=== PATIENT | female | born 1990 | race Caucasian/White ===

== ENCOUNTER → 2018-11-03 | Outpatient (CLI) | payer OTHER ==
[~2018-11-03] MED LIST: CLIN300 PO; ONDA4ODT MM; OXYACE5T PO; PROM25 PO; RXONDA4ODT MM; RXOXYACE PO; RXPROM25 PO; TRAM50 PO
[2018-11-06 20:06] LABS: HSV-1 DNA Positive (Negative); HSV-2 DNA Negative (Negative)
== END | disposition home or self-care (01) ==
LOC: LAB SHORT 14:31 → LAB 14:31
PROVIDERS: Nurse Practitioner Women's Health
DX: A60.00 Herpesviral infection of urogenital system, unspecified (principal)
CPT/HCPCS: 87529

== ENCOUNTER 2021-03-27 09:21 | Day surgery (SDC) | payer OTHER ==
[~2021-03-27] VITALS: Ht 167.6 cm; Wt 66.7 kg
[~2021-03-27 09:21] MED LIST changes: +ASCO500 PO; +FISH OIL 1,2001 EAC7 PO; +KETOROLAC; +MAGNESIUM OXID500 MG PO; +Ondansetron Odt8 MG MM; +PRENATAL TABLE1 EAC2 PO; +ZANAFLEX4 M5 PO
== END 2021-03-27 11:50 | disposition home or self-care (01) ==
LOC: ORSCSDS 09:21
PROVIDERS: Surgery
PROC: 0DB68ZX Excision of Stomach, Via Natural or Artificial Opening Endoscopic, Diagnostic (ICD-10-PCS; principal; 2021-03-27 10:30)
PROC: 0DBP8ZX Excision of Rectum, Via Natural or Artificial Opening Endoscopic, Diagnostic (ICD-10-PCS; principal; 2021-03-27 10:30)
PROC: 0DBN8ZX Excision of Sigmoid Colon, Via Natural or Artificial Opening Endoscopic, Diagnostic (ICD-10-PCS; principal; 2021-03-27 10:30)
PROC: 0DB98ZX Excision of Duodenum, Via Natural or Artificial Opening Endoscopic, Diagnostic (ICD-10-PCS; principal; 2021-03-27 10:30)
PROC: 0DBL8ZX Excision of Transverse Colon, Via Natural or Artificial Opening Endoscopic, Diagnostic (ICD-10-PCS; principal; 2021-03-27 10:30)
PROC: 0DBK8ZX Excision of Ascending Colon, Via Natural or Artificial Opening Endoscopic, Diagnostic (ICD-10-PCS; principal; 2021-03-27 10:30)
DX: R11.0 Nausea (principal); R10.13 Epigastric pain; K59.1 Functional diarrhea; D64.9 Anemia, unspecified; A60.00 Herpesviral infection of urogenital system, unspecified; Z87.891 Personal history of nicotine dependence; Z79.899 Other long term (current) drug therapy
CPT/HCPCS: 88305; 88342; J0330; J0461; J2250; J2405; J2704; J7120

== ENCOUNTER → 2022-02-05 | Outpatient (CLI) | payer OTHER ==
[2022-02-08 23:08] LABS: CHLAMYDIA TRACHOMATIS, NAA Negative (Negative)
== END | disposition home or self-care (01) ==
LOC: LAB SHORT 12:01
PROVIDERS: Obstetrics & Gynecology
DX: Z34.01 Encounter for supervision of normal first pregnancy, first trimester (principal)
CPT/HCPCS: 87491; 87591

== ENCOUNTER 2022-04-11 11:30 | Emergency (ER) | payer OTHER ==
[~2022-04-11] VITALS: Ht 167.6 cm; Wt 77.1 kg
[2022-04-11 12:04] LABS: Source, Urine Clean Catch
[2022-04-11 12:08] LABS: Appearance, Urine Hazy (Clear); Bilirubin, Urine Neg (Neg); Blood, Urine 3+ (Neg); Color, Urine Yellow (P-Yellow); Glucose Qualitative, Urine Neg (Neg); Ketones, Urine Neg (Neg); Leukocyte Esterase, Urine Neg (Neg); Nitrite, Urine Neg (Neg); Protein, Urine Neg (Neg); Specific Gravity, Urine 1.015 (1.003-1.022); Urobilinogen, Urine NORM (Normal); pH, Urine 6.5 (5.0-8.0)
[2022-04-11 12:18] LABS: BASOPHILS ABSOLUTE AUTO 0.05 K/mm3 (0.00-0.23); BASOPHILS PERCENT AUTO 0 % (0-2); EOSINOPHILS ABSOLUTE AUTO 0.07 K/mm3 (0.00-0.68); EOSINOPHILS PERCENT AUTO 1 % (0-6); Hematocrit 34.2 % (33.0-51.0); Hemoglobin 11.5 g/dL (11.5-16.0); IMMATURE GRAN ABSOLUTE AUTO 0.19 K/mm3 (0.00-0.10); IMMATURE GRAN PERCENT AUTO 1 % (0-1); LYMPHOCYTES ABSOLUTE AUTO 1.78 K/mm3 (0.84-5.20); LYMPHOCYTES PERCENT AUTO 13 % (21-46); MONOCYTES ABSOLUTE AUTO 0.61 K/mm3 (0.16-1.47); MONOCYTES PERCENT AUTO 4 % (4-13); Mean Corpuscular HGB 30.9 pg (26.0-34.0); Mean Corpuscular HGB Conc 33.6 g/dL (31.5-36.5); Mean Corpuscular Volume 92 fL (80-100); Mean Platelet Volume 9.4 fL (9.1-12.4); NEUTROPHILS ABSOLUTE AUTO 11.05 K/mm3 (1.96-9.15); NEUTROPHILS PERCENT AUTO 80 % (41-73); Platelet Count 243 K/mm3 (150-400); RDW Coefficient Variation 12.3 % (11.7-14.2); Red Blood Cell Count 3.72 M/mm3 (3.80-5.20); White Blood Cell Count 13.75 K/mm3 (4.00-11.30)
[2022-04-11 12:24] LABS: Squamous Epithelial Cells Few /hpf (Few); White Blood Cells, Urine 0-2 /hpf (0-5)
[2022-04-11 12:25] LABS: Amorphous Mod (0-Heavy); Bacteria Few /hpf
[2022-04-11 12:55] LABS: Albumin/Globulin Ratio 0.8 (0.8-1.8); Bilirubin, Total 0.1 mg/dL (0.1-1.0); Bun/Creatinine Ratio 12.7 (12.0-20.0); Calcium, Blood 8.9 mg/dL (8.5-10.1); Creatinine, Blood 0.71 mg/dL (0.40-1.00); Globulin, Blood 3.7 g/dL (2.2-4.0); Potassium, Blood 3.8 mmol/L (3.5-5.5); Total Protein, Blood 6.7 g/dL (6.4-8.2)
[2022-04-11] MEDS ORDERED: ONDA4ODT MM (16:55)
[2022-04-11] MEDS ORDERED: HYDR1TAB94 PO (16:55)
== END 2022-04-11 17:03 | disposition home or self-care (01) ==
LOC: ER 11:30
PROVIDERS: Physician Assistant
DX: O99.891 Other specified diseases and conditions complicating pregnancy (principal); N13.30 Unspecified hydronephrosis; R11.2 Nausea with vomiting, unspecified; Z88.5 Allergy status to narcotic agent; Z79.899 Other long term (current) drug therapy; Z87.891 Personal history of nicotine dependence; Z3A.22 22 weeks gestation of pregnancy
CPT/HCPCS: 36415; 76770; 76815; 80053; 81001; 84702; 85025; A9270; J2270; J2405; J2550; J7030

== ENCOUNTER → 2022-07-27 | Outpatient (CLI) | payer OTHER ==
[~2022-07-27] MED LIST changes: +HYDR1TAB94 PO; +IBU800 MG PO; +UNISOM PM PAIN1 EACH PO
== END | disposition home or self-care (01) ==
LOC: LAB SHORT 17:54 → LAB 17:54
DX: Z34.03 Encounter for supervision of normal first pregnancy, third trimester (principal); Z3A.36 36 weeks gestation of pregnancy
CPT/HCPCS: 87081; 87150

== ENCOUNTER 2022-08-14 20:59 | Inpatient (IN) | payer OTHER ==
[~2022-08-14] VITALS: Ht 167.6 cm; Wt 90.5 kg
[~2022-08-14 20:59] MED LIST changes: -IBU800 MG PO; -UNISOM PM PAIN1 EACH PO
[2022-08-14 21:38] LABS: BASOPHILS ABSOLUTE AUTO 0.03 K/mm3 (0.00-0.23); BASOPHILS PERCENT AUTO 0 % (0-2); EOSINOPHILS ABSOLUTE AUTO 0.07 K/mm3 (0.00-0.68); EOSINOPHILS PERCENT AUTO 1 % (0-6); Hematocrit 33.4 % (33.0-51.0); Hemoglobin 11.6 g/dL (11.5-16.0); IMMATURE GRAN PERCENT AUTO 2 % (0-1); LYMPHOCYTES PERCENT AUTO 18 % (21-46); MONOCYTES ABSOLUTE AUTO 0.77 K/mm3 (0.16-1.47); MONOCYTES PERCENT AUTO 6 % (4-13); Mean Corpuscular HGB 31.6 pg (26.0-34.0); Mean Corpuscular HGB Conc 34.7 g/dL (31.5-36.5); Mean Corpuscular Volume 91 fL (80-100); NEUTROPHILS ABSOLUTE AUTO 9.06 K/mm3 (1.96-9.15); NEUTROPHILS PERCENT AUTO 74 % (41-73); Platelet Count 201 K/mm3 (150-400); RDW Coefficient Variation 13.5 % (11.7-14.2); RDW Standard Deviation 44.9 fL (35.1-46.3); Red Blood Cell Count 3.67 M/mm3 (3.80-5.20); White Blood Cell Count 12.33 K/mm3 (4.00-11.30)
[2022-08-14] MEDS ORDERED: UNISOM PM PAIN1 EACH PO (21:41)
[2022-08-14 23:06] LABS: PCO2 Cord - Arterial 74.4 mmHg (40-50); PO2 Cord - Arterial < 14 mmHg (16-20); pH Cord - Arterial 7.17 (7.28-7.35)
[2022-08-14 23:08] LABS: PCO2 Cord - Venous 55.8 mmHg (40-50); PO2 Cord - Venous 14.4 mmHg (28-32); pH Umbilical Cord - Venous 7.29 (7.26-7.35)
[2022-08-15 06:47] LABS: BASOPHILS ABSOLUTE AUTO 0.02 K/mm3 (0.00-0.23); BASOPHILS PERCENT AUTO 0 % (0-2); EOSINOPHILS ABSOLUTE AUTO 0.04 K/mm3 (0.00-0.68); EOSINOPHILS PERCENT AUTO 0 % (0-6); Hematocrit 30.3 % (33.0-51.0); Hemoglobin 10.3 g/dL (11.5-16.0); IMMATURE GRAN ABSOLUTE AUTO 0.15 K/mm3 (0.00-0.10); IMMATURE GRAN PERCENT AUTO 1 % (0-1); LYMPHOCYTES ABSOLUTE AUTO 2.06 K/mm3 (0.84-5.20); LYMPHOCYTES PERCENT AUTO 15 % (21-46); MONOCYTES ABSOLUTE AUTO 0.77 K/mm3 (0.16-1.47); MONOCYTES PERCENT AUTO 6 % (4-13); Mean Corpuscular HGB 31.3 pg (26.0-34.0); Mean Corpuscular Volume 92 fL (80-100); NEUTROPHILS ABSOLUTE AUTO 10.77 K/mm3 (1.96-9.15); NEUTROPHILS PERCENT AUTO 78 % (41-73); Platelet Count 185 K/mm3 (150-400); RDW Coefficient Variation 13.5 % (11.7-14.2); RDW Standard Deviation 45.9 fL (35.1-46.3); Red Blood Cell Count 3.29 M/mm3 (3.80-5.20); White Blood Cell Count 13.81 K/mm3 (4.00-11.30)
--- NOTE | 2022-08-16 01:00 | NUR ---
VS DEFERED FOR PT TO SLEEP, RN HAS NB AT DESK
[2022-08-16] MEDS ORDERED: HYDR1TAB94 PO (14:31)
[2022-08-16] MEDS ORDERED: IBU800 MG PO (14:31)
--- NOTE | 2022-08-17 10:00 | NUR ---
ELEVATED BP DURING AM ASSESSMENT, PT WAS SITTING ON THE EDGE OF BED. PATIENT STATED SHE JUST GOT OUT OF THE BATHROOM AND DRANK SOME COFFEE. WILL CHECK WHEN PATIENT IN BACK IN BED.
--- NOTE | 2022-08-17 11:05 | NUR ---
PATIENT IS STILL UP IN CHAIR FOR A VISIT. WILL RECHECK BLOOD PRESSURE.
--- NOTE | 2022-08-17 16:56 | NUR ---
PT BP ELEVATED 155/103, PT WAS SEMI FOWLERS. AFTER BP READING PT STATED "I WAS HOLDING MY BREATH". PT IS ALSO PREPARING TO D/C HOME AND HAS BEEN PREPARING SELF, BABY AND BELONGINGS. WILL RECHECK AND NOTIFY MD NEEDED.
--- NOTE | 2022-08-17 17:57 | NUR ---
PRINTED DISCHARGED INSTRUCTIONS AND REVIEWED WITH PATIEN AND SPOUSE. PATIENT VERBALIZED UNDERSTANDING OF INSTRUCTIONS AND FOLLOW UP. PATIENT DENIES ADDITIONAL QUESTIONS. ID BANDS MATCHED WITH . PATIENT IS DISCHARGED HOME AMBULATORY TO CARE OF .
== END 2022-08-17 17:40 | disposition home or self-care (01) | DRG 788 ==
LOC: OBS 20:59 → BC 21:02 → OBS 21:27 → BC 21:28
PROVIDERS: ADMIT Obstetrics & Gynecology
PROC: 10D00Z1 Extraction of Products of Conception, Low, Open Approach (ICD-10-PCS; principal; 2022-08-14 19:15)
DX: O42.02 Full-term premature rupture of membranes, onset of labor within 24 hours of rupture (principal); O32.1XX0 Maternal care for breech presentation, not applicable or unspecified; Z37.0 Single live birth; Z3A.38 38 weeks gestation of pregnancy; Z79.899 Other long term (current) drug therapy
CPT/HCPCS: 36415; 59025; 82803; 85025; 86850; 86900; 86901; A9270; J0690; J1885; J2370; J2405; J2590; J2765; J3010; J7120